=== PATIENT | male | born 1985 | race Caucasian/White ===

== ENCOUNTER 2016-09-07 20:39 | Emergency (ER) | payer MEDICAID ==
[~2016-09-07] VITALS: Ht 185.4 cm; Wt 79.4 kg
[2016-09-07 20:46] VITALS: BP 125/87
== END 2016-09-07 21:00 | disposition home or self-care (01) ==
LOC: ER 20:40
DX: Z76.0 Encounter for issue of repeat prescription (principal); F32.9 Major depressive disorder, single episode, unspecified; F41.9 Anxiety disorder, unspecified; F90.9 Attention-deficit hyperactivity disorder, unspecified type
CPT/HCPCS: 99281; A4606; Z7610; Z7502